=== PATIENT | female | born 1995 | race Caucasian/White ===

== ENCOUNTER 2025-07-16 15:17 | Emergency (ER) | payer BC ==
[~2025-07-16] VITALS: Ht 149.9 cm; Wt 63.6 kg
[2025-07-16 15:21] VITALS: BP 117/84; PULSE 107; RESP 18; TEMP 97.9; O2SAT 100
[2025-07-16] MEDS ORDERED: DIPH25CA85 PO (17:39)
[2025-07-16] MEDS ORDERED: PRED-554 PO (17:39)
== END 2025-07-16 17:47 | disposition home or self-care (01) ==
LOC: EMS 15:20
DX: L50.9 Urticaria, unspecified (principal); J45.909 Unspecified asthma, uncomplicated; F41.9 Anxiety disorder, unspecified
CPT/HCPCS: 99283; J7512

== ENCOUNTER 2025-07-26 12:30 | Emergency (ER) | payer BC ==
[~2025-07-26] VITALS: Ht 149.9 cm; Wt 64.0 kg
[~2025-07-26 12:30] MED LIST: DIPH25CA85 PO; PRED-554 PO
[2025-07-26 12:38] VITALS: TEMP 98.2
[2025-07-26 13:30] VITALS: BP 117/90; PULSE 86; RESP 18; O2SAT 99
[2025-07-26 13:54] LABS: PLATELET COUNT (AUTO) 301 K/uL (150-450); RED BLOOD CELL COUNT(AUTO) 4.83 MIL/uL (4.00-5.20); RED CELL DISTRIBUTION WIDTH 12.8 % (11.5-14.5); WHITE BLOOD COUNT (AUTO) 11.1 K/uL (4.5-11.0)
[2025-07-26 14:00] LABS: CALCIUM, TOTAL 9.0 mg/dL (8.8-10.5); CREATININE 0.75 mg/dL (0.60-1.30); GLOMERULAR FILTR. RATE CALC > 60 mL/min (>60); GLUCOSE,RANDOM 102 mg/dL (70-110); SODIUM SERUM 136 mmol/L (136-145); UREA NITROGEN, BLOOD 12 mg/dL (7-18)
[2025-07-26 14:09] LABS: APPEARANCE,URINE CLEAR (CLEAR); GLUCOSE, URINE (UA) NEGATIVE (NEGATIVE); LEUKOCYTE ESTERASE ,URINE NEGATIVE (NEGATIVE); NITRATE,URINE NEGATIVE (NEGATIVE); OCCULT BLOOD,URINE NEGATIVE (NEGATIVE); SPECIFIC GRAVITIY, URINE 1.028 (1.003-1.030)
[2025-07-26] MEDS ORDERED: HYDR30CR39 TP (14:26)
[2025-07-26] MEDS ORDERED: LORA10TA7 PO (14:26)
[2025-07-26] MEDS ORDERED: NAPR-1197 PO (14:31)
[2025-07-26 14:36] LABS: ERYTHROCYTE SEDIMENTATION RATE 10 MM/HR (0-20)
== END 2025-07-26 15:49 | disposition home or self-care (01) ==
LOC: EMS 12:30
DX: R23.8 Other skin changes (principal); J45.909 Unspecified asthma, uncomplicated; R06.02 Shortness of breath; Z79.52 Long term (current) use of systemic steroids
CPT/HCPCS: 80048; 81003; 84703; 85025; 85384; 85610; 85651; 85730; 86140; 99283